=== PATIENT | male | born 1975 | race Two or more races ===

== ENCOUNTER 2017-06-12 19:51 | Emergency (ER) | payer MEDICAID, OTHER ==
[~2017-06-12] VITALS: Ht 167.6 cm; Wt 95.7 kg
--- NOTE | 2017-06-12 20:03 | NUR ---
PT BIBSELF AMBULATORY TO ER BED 11 PT STATES "HEADACHE ON AND OFF FOR ONE WEEK/FATIGUE" PT AOX3 RR EVEN AND UNLABORED. NO SOB NOTED. NAD NOTED. NO NVD AT THIS TIME. PT PLACED ON MONITOR WAITING FOR MD COLEMAN.
[2017-06-12] MEDS ORDERED: hydrALAZINE HCL IV 20 MG VIAL IV ONE ×2 (20:30)
--- NOTE | 2017-06-12 20:38 | NUR ---
BLOOD DRAW SENT TO LAB
--- NOTE | 2017-06-12 20:38 | NUR ---
MD AWARE OF CURRENT VS, PER MD TO HOLD IV HYDRAZALINE AT THIS TIME. PT ALSO TOOK LISINOPRIL 1 HR FORMAL SERVICE WAITER. AWARE
[2017-06-12 20:41] LABS: BASOPHILS # (AUTO) 0.1 /CMM (0.0-0.2); BASOPHILS % (AUTO) 1.3 % (0.0-2.0); EOSINOPHILS % (AUTO) 7.3 % (0.0-6.0); HEMATOCRIT 40 % (39-51); HEMOGLOBIN 14.1 g/dL (13.5-17.5); LYMPHOCYTES # (AUTO) 2.4 /CMM (0.8-4.8); LYMPHOCYTES % (AUTO) 30.3 % (20.0-44.0); MEAN CORPUSCULAR HGB CONC 35 g/dl (31.0-36.0); MEAN CORPUSCULAR VOLUME 80 fL (80-96); MONOCYTES # (AUTO) 0.6 /CMM (0.1-1.30); NEUTROPHILS # (AUTO) 4.2 /CMM (1.8-8.9); NEUTROPHILS % (AUTO) 53.1 % (43.0-81.0); PLATELET COUNT (AUTO) 264 /CMM (150-450); RDW COEFFICIENT OF VARIATION 11.5 (11.5-15.0); RED BLOOD CELL COUNT(AUTO) 5.08 MIL/uL (4.5-6.0); WHITE BLOOD COUNT (AUTO) 7.9 K/uL (4.3-11.0)
[2017-06-12 21:00] LABS: CALCIUM, SERUM 8.4 mg/dL (8.5-10.1); CREATININE 0.9 mg/dL (0.6-1.3); POTASSIUM 3.7 mmol/L (3.5-5.1)
[2017-06-12] MEDS ORDERED: hydrALAZINE HCL IV 20 MG VIAL ONE (21:09)
--- NOTE | 2017-06-12 21:41 | NUR ---
DR. BO AT BEDSIDE SPEAKING TO PT REGARDING RESULTS/ POC
--- NOTE | 2017-06-12 21:50 | NUR ---
IV removed. Catheter intact and site benign. Pressure and 4x4 applied to site. No bleeding noted. Patient discharged to home in stable condition. Written and verbal after care instructions given. Patient verbalizes understanding of instruction. ambulatory with a steady gait
[2017-06-12 21:51] VITALS: BP 160/77
== END 2017-06-12 21:51 | disposition home or self-care (01) ==
LOC: ER 19:53
DX: I10 Essential (primary) hypertension (principal); R53.83 Other fatigue; J45.909 Unspecified asthma, uncomplicated; F32.9 Major depressive disorder, single episode, unspecified; F41.9 Anxiety disorder, unspecified; F17.200 Nicotine dependence, unspecified, uncomplicated; Z60.2 Problems related to living alone
CPT/HCPCS: 36415; 80048-TC; 85025-TC; A4606; J0360; Z7610

== ENCOUNTER 2017-09-19 17:53 | Emergency (ER) | payer MEDICAID, OTHER ==
[~2017-09-19] VITALS: Ht 167.6 cm; Wt 90.7 kg
[2017-09-19 17:55] VITALS: BP 122/75
== END 2017-09-19 19:02 | disposition home or self-care (01) ==
LOC: ER 17:55
DX: J06.9 Acute upper respiratory infection, unspecified (principal); J45.909 Unspecified asthma, uncomplicated; I10 Essential (primary) hypertension; F41.9 Anxiety disorder, unspecified; F32.9 Major depressive disorder, single episode, unspecified; F10.10 Alcohol abuse, uncomplicated; F17.200 Nicotine dependence, unspecified, uncomplicated; Y90.9 Presence of alcohol in blood, level not specified; Z60.2 Problems related to living alone
CPT/HCPCS: 93005; 99283; A4606; Z7610

== ENCOUNTER 2019-04-06 12:28 | Emergency (ER) | payer MEDICAID ==
[~2019-04-06] VITALS: Ht 167.6 cm; Wt 90.7 kg
[2019-04-06 12:31] VITALS: BP 132/80
== END 2019-04-06 12:58 | disposition home or self-care (01) ==
LOC: ER 12:31
DX: R59.1 Generalized enlarged lymph nodes (principal); I10 Essential (primary) hypertension; E78.00 Pure hypercholesterolemia, unspecified; J45.909 Unspecified asthma, uncomplicated; F10.10 Alcohol abuse, uncomplicated; F17.200 Nicotine dependence, unspecified, uncomplicated; Y90.9 Presence of alcohol in blood, level not specified; Z60.2 Problems related to living alone

== ENCOUNTER 2020-10-17 16:47 | Emergency (ER) | payer MEDICAID ==
[~2020-10-17] VITALS: Ht 172.7 cm; Wt 90.7 kg
--- NOTE | 2020-10-17 16:47 | NUR ---
PT BIB SELF C/O BILATERAL KNEE PAIN. PT IS AAOX4, NOT IN RESPIRATORY DISTRESS, V/S STABLE, KEPT RESTED AND COMFORTABLE. WILL CONTINUE TO MONITOR.
--- NOTE | 2020-10-17 18:37 | NUR ---
SEEN AND EXAMINED BY MARS MEEKS.
[2020-10-17] MEDS ORDERED: KETOROLAC TROMETHAMINE 15 MG/ML VIAL ONE (18:39)
[2020-10-17] MEDS ORDERED: methylPREDNISolone SOD SUCC 125 MG/2ML VIAL ONE (18:40)
[2020-10-17] MEDS ORDERED: COLCHICINE 0.6 MG TABLET ONE ×3 (18:40→19:55)
[2020-10-17] MEDS ORDERED: COLCHICINE 0.6 MG TABLET PO ONE ×2 (19:00→20:00)
[2020-10-17] MEDS ORDERED: methylPREDNISolone SOD SUCC 125 MG/2ML VIAL IV ONE (19:00)
[2020-10-17] MEDS ORDERED: KETOROLAC TROMETHAMINE INJ 30 MG/ML VIAL IV ONE (19:00)
[2020-10-17] MEDS ORDERED: COLC0.6C3 PO (20:36)
[2020-10-17] MEDS ORDERED: INDO50CA92 PO (20:36)
--- NOTE | 2020-10-17 20:48 | NUR ---
Patient discharged to home in stable condition. Written and verbal after care instructions given. Patient verbalizes understanding of instruction.IV removed. Catheter intact and site benign. Pressure and 4x4 applied to site. No bleeding noted. Pt ambulatory with a steady gait w/ an aide of crutches
[2020-10-17 20:52] VITALS: BP 135/83
== END 2020-10-17 20:53 | disposition home or self-care (01) ==
LOC: ER 16:50
DX: M10.9 Gout, unspecified (principal); F17.200 Nicotine dependence, unspecified, uncomplicated; I10 Essential (primary) hypertension; J45.909 Unspecified asthma, uncomplicated; F32.9 Major depressive disorder, single episode, unspecified; F41.9 Anxiety disorder, unspecified; Z60.2 Problems related to living alone
CPT/HCPCS: 82962; 96374; 96375; 99284; 99406; J1885; J2930

== ENCOUNTER 2021-01-06 10:39 | Emergency (ER) | payer MEDICAID ==
[~2021-01-06] VITALS: Ht 167.6 cm; Wt 90.7 kg
[~2021-01-06 10:39] MED LIST: COLC0.6C3 PO; INDO50CA92 PO
[2021-01-06 10:44] VITALS: BP 127/74
--- NOTE | 2021-01-06 10:49 | NUR ---
DR SWAIN AT BEDSIDE
[2021-01-06] MEDS ORDERED: CYCLOBENZAPRINE 10 MG TABLET ONE (10:55)
[2021-01-06] MEDS ORDERED: KETOROLAC TROMETHAMINE INJ 30 MG/ML VIAL ONE (10:55)
[2021-01-06] MEDS ORDERED: CYCLOBENZAPRINE 10 MG TABLET PO ONE (11:00)
[2021-01-06] MEDS ORDERED: KETOROLAC TROMETHAMINE INJ 30 MG/ML VIAL IM ONE (11:00)
[2021-01-06] MEDS ORDERED: CYCL5TAB PO (11:04)
[2021-01-06] MEDS ORDERED: ACET-2605 PO (11:04)
--- NOTE | 2021-01-06 11:21 | NUR ---
Patient discharged to home in stable condition. Written and verbal after care instructions given. Patient verbalizes understanding of instruction.
== END 2021-01-06 11:18 | disposition home or self-care (01) ==
LOC: ER 10:42
DX: S16.1XXA Strain of muscle, fascia and tendon at neck level, initial encounter (principal); M54.12 Radiculopathy, cervical region; I10 Essential (primary) hypertension; J45.909 Unspecified asthma, uncomplicated; F32.9 Major depressive disorder, single episode, unspecified; F41.9 Anxiety disorder, unspecified; F17.200 Nicotine dependence, unspecified, uncomplicated; Z60.2 Problems related to living alone; Z79.899 Other long term (current) drug therapy; X50.0XXA Overexertion from strenuous movement or load, initial encounter; Y93.89 Activity, other specified; Y92.89 Other specified places as the place of occurrence of the external cause; Y99.8 Other external cause status
CPT/HCPCS: 96372; 99283; J1885

== ENCOUNTER 2021-02-06 16:35 | Emergency (ER) | payer MEDICAID ==
[~2021-02-06] VITALS: Ht 167.6 cm; Wt 90.7 kg
[~2021-02-06 16:35] MED LIST changes: +ACET-2605 PO; +CYCL5TAB PO
--- NOTE | 2021-02-06 16:50 | NUR ---
PT CAME TO ER C/O NECK PAIN X 3 DAYS, RATED 7/10 RADIATING TO L SHOULDER AND ELBOW. ADMITS NUMBNESS, DENIES TINGLING. PT ALSO REPORTS ELEVATE BP. ADMITS HEADACHE EARLIER THIS MORNING, WHICH HAS RESOLVED AT THIS TIME. BP 143/86. AAOX4, AMBULATORY, BREATHING EVEN AND UNLABORED.
[2021-02-06] MEDS ORDERED: NAPR500T6 PO (17:08)
[2021-02-06] MEDS ORDERED: CYCL10TA9 PO (17:09)
[2021-02-06] MEDS ORDERED: KETOROLAC TROMETHAMINE INJ 30 MG/ML VIAL ONE (17:24)
[2021-02-06] MEDS ORDERED: DEXAMETHASONE SOD PHOSPHATE 10 MG/ML VIAL ONE (17:24)
[2021-02-06] MEDS: KETOROLAC TROMETHAMINE INJ 60 MG/2 ML VIAL IM ONE (17:43)
[2021-02-06] MEDS: DEXAMETHASONE SOD PHOSPHATE 4 MG/ML VIAL IM ONE (17:43)
--- NOTE | 2021-02-06 17:56 | NUR ---
Patient discharged to home in stable condition. Written and verbal after care instructions given. Patient verbalizes understanding of instruction.
[2021-02-06 17:58] VITALS: BP 129/82
== END 2021-02-06 17:51 | disposition home or self-care (01) ==
LOC: ER 16:42
DX: M54.12 Radiculopathy, cervical region (principal); I10 Essential (primary) hypertension; J45.909 Unspecified asthma, uncomplicated; F32.9 Major depressive disorder, single episode, unspecified; F41.9 Anxiety disorder, unspecified; E78.00 Pure hypercholesterolemia, unspecified; F17.200 Nicotine dependence, unspecified, uncomplicated; Z60.2 Problems related to living alone; Z79.899 Other long term (current) drug therapy
CPT/HCPCS: 96372 ×2; 99284; J1100; J1885

== ENCOUNTER 2021-02-08 18:49 | Emergency (ER) | payer MEDICAID ==
[~2021-02-08] VITALS: Ht 167.6 cm; Wt 90.7 kg
[~2021-02-08 18:49] MED LIST changes: +CYCL10TA9 PO; +NAPR500T6 PO
--- NOTE | 2021-02-08 19:50 | NUR ---
PRESENTED TO THE ER FOR C/O ONGOING HICCUPS X 2 DAYS. PATIENT ALERT AND ORIENTED X3. AMBULATORY WITH NON LABORED BREATHING.
[2021-02-08 20:46] LABS: BASOPHILS # (AUTO) 0.1 K/uL (0.0-0.2); BASOPHILS % (AUTO) 0.8 % (0.0-2.0); EOSINOPHILS % (AUTO) 0.2 % (0.0-6.0); HEMATOCRIT 38 % (39-51); HEMOGLOBIN 12.4 g/dL (13.5-17.5); LYMPHOCYTES # (AUTO) 2.2 K/uL (0.8-4.8); LYMPHOCYTES % (AUTO) 22.1 % (20.0-44.0); MEAN CORPUSCULAR HGB CONC 33 g/dl (31.0-36.0); MEAN CORPUSCULAR VOLUME 83 fL (80-96); MONOCYTES # (AUTO) 0.9 K/uL (0.1-1.30); MONOCYTES % (AUTO) 9.2 % (2.0-12.0); NEUTROPHILS # (AUTO) 6.7 K/uL (1.8-8.9); NEUTROPHILS % (AUTO) 67.7 % (43.0-81.0); PLATELET COUNT (AUTO) 294 K/uL (150-450); RED BLOOD CELL COUNT(AUTO) 4.55 MIL/uL (4.5-6.0); WHITE BLOOD COUNT (AUTO) 9.9 K/uL (4.3-11.0)
[2021-02-08 20:59] LABS: CALCIUM, SERUM 8.5 mg/dL (8.5-10.1); CARBON DIOXIDE 28 mmol/L (21-32); CHLORIDE 101 mmol/L (98-107); GLUCOSE 90 mg/dL (74-106); POTASSIUM 3.4 mmol/L (3.5-5.1); SODIUM SERUM 140 mmol/L (136-145); UREA NITROGEN, BLOOD 15 mg/dL (7-18)
[2021-02-08 21:09] LABS: LYMPHOCYTES % (MANUAL) 22 % (16-48); MONOCYTES % (MANUAL) 9 % (0-11.0); NEUTROPHILS % (MANUAL) 69 (42-76)
[2021-02-08 21:43] VITALS: BP 138/88
--- NOTE | 2021-02-08 21:44 | NUR ---
PT IS MEDICALLY STBALE FOR D/C. Patient discharged to home in stable condition. Written and verbal after care instructions given. Patient verbalizes understanding of instruction.
== END 2021-02-08 21:48 | disposition home or self-care (01) ==
LOC: ER 18:57
DX: R06.6 Hiccough (principal); I51.7 Cardiomegaly; F32.9 Major depressive disorder, single episode, unspecified; F41.9 Anxiety disorder, unspecified; F17.200 Nicotine dependence, unspecified, uncomplicated; Z98.890 Other specified postprocedural states; Z60.2 Problems related to living alone; Z79.899 Other long term (current) drug therapy
CPT/HCPCS: 36415; 71045-TC; 80048-TC; 84484-TC; 85025-TC